=== PATIENT | female | born 1990 | race Asian ===

== ENCOUNTER 2018-12-14 02:15 | Emergency (ER) | payer BC ==
[~2018-12-14] VITALS: Ht 152.4 cm; Wt 68.0 kg
[2018-12-14 02:20] VITALS: Ht 152.4 cm; Wt 68.0 kg
[2018-12-14 03:00] VITALS: BP 127/78
== END 2018-12-14 03:00 | disposition home or self-care (01) ==
LOC: ED 02:15
DX: S91.312A Laceration without foreign body, left foot, initial encounter (principal); Z98.890 Other specified postprocedural states; W20.8XXA Other cause of strike by thrown, projected or falling object, initial encounter; Y93.89 Activity, other specified; Y92.89 Other specified places as the place of occurrence of the external cause; Y99.8 Other external cause status
CPT/HCPCS: 90715